=== PATIENT | male | born 1935 ===

== ENCOUNTER 2021-10-31 18:48 | Emergency (ER) | payer MEDICARE, OTHER | END 2021-10-31 21:55 | disposition home or self-care (01) | LOC: ER1 18:48 | DX: L89.152 Pressure ulcer of sacral region, stage 2 (principal); E11.22 Type 2 diabetes mellitus with diabetic chronic kidney disease; I12.9 Hypertensive chronic kidney disease with stage 1 through stage 4 chronic kidney disease, or unspecified chronic kidney disease; N18.9 Chronic kidney disease, unspecified; I48.91 Unspecified atrial fibrillation; Z87.891 Personal history of nicotine dependence | CPT/HCPCS: 73502; 82272; 99284 ==